=== PATIENT | male | born 1940 | race Caucasian/White ===

== ENCOUNTER 2017-06-15 05:35 | Day surgery (SDC) | payer MEDICARE, OTHER ==
[~2017-06-15] VITALS: Ht 172.7 cm; Wt 104.3 kg
[~2017-06-15 05:35] MED LIST: ASPIRIN325 MG PO; FINASTERIDE5 MG PO; FLOMAX0.4 MG PO; LIPITOR40 MG PO; PLAVIX75 MG PO
--- NOTE | 2017-06-15 08:43 | NUR ---
06/15/17 0843 Kaitlynn Beach DC
[2017-06-15] MEDS ORDERED: OXYCODON-ACETA1 EAC2 PO (09:00)
[2017-06-15] MEDS ORDERED: MAPAP325 MG PO (09:00)
[2017-06-15] MEDS ORDERED: IBUPROFEN600 MG PO (09:00)
--- NOTE | 2017-06-15 14:58 | OR ---
[facility] [address], [place] [address] Signed DATE OF OPERATION: 06/15/2017 SURGEON: Karyn Clayton MD PREOPERATIVE DIAGNOSES: 1. Recurrent soft tissue mass, mid posterior thorax, probable recurrent epidermal inclusion cyst. 2. New right posterior-superior thorax soft tissue mass. POSTOPERATIVE DIAGNOSES: 1. Recurrent epidermal inclusion cyst, mid posterior thorax (4 cm). 2. New epidermal inclusion cyst, right upper posterior thorax. PROCEDURES: 1. Excision of posterior thorax recurrent mid soft tissue mass (subfascial). 2. Excision of right posterior-superior thoracic soft tissue mass, probable epidermal inclusion cyst. ANESTHESIA: Local with monitored anesthesia care, Doris Paz CRNA and local 20 mL of 0.25% Marcaine with epinephrine. INDICATION: This 76-year-old white man is a patient of Dr. Norman Smiley and has had complex neck surgery in the past including titanium implant and so on. He has noted a soft tissue mass recurrence in the mid posterior thorax. Approximately 3 years ago, he underwent excision of what sounds like a sebaceous cyst by Dr. Manuelito Degroot. A transverse incision was made. He has had no drainage or infection of the area. It was somewhat uncomfortable. In addition, he has a new soft tissue mass of the right posterior thorax in the region of the scapula. He wishes that to be excised as well. The risks of bleeding, infection, cosmetic deformity, and of course, recurrence were reviewed with him and his . He understands and wished to proceed. FINDINGS: Rather sizable soft tissue mass was noted at the recurrent site of the previous excision. A transverse incision had previously been used. On this occasion, a longitudinal incision was more appropriate to allow for complete excision of the mass. It was most consistent with the recurrent epidermal inclusion cyst and was excised clearly to the posterior thoracic fascia and completely so. Good cosmesis was noted upon closure. Electronically Signed By: KARYN CLAYTON MD 06/15/17 1458 PATIENT NAME: PRACHI JAQUEZ OPERATIVE REPORT DATE OF : 38 PHYSICIAN: KARYN CLAYTON MD REPORT #: [id number] REPORT IS CONFIDENTIAL AND NOT TO BE RELEASED WITHOUT AUTHORIZATION [facility] [address], [place] [address] Signed The right posterior shoulder soft tissue mass was very likely epidermal inclusion cyst. Full thickness excision was undertaken including skin and subcutaneous tissue down to the posterior fascia as well. DESCRIPTION OF PROCEDURE: The patient was brought to the operating room and placed in the lateral decubitus position, which was of great discomfort to him. The left side was down. Appropriate padding was undertaken. Preoperative antibiotic Ancef was given. Sequential compression device stockings used and heparin subcutaneously administered. The posterior thorax including the right shoulder area was prepared with a chlorhexidine solution and draped sterilely. Intravenous sedation was induced with good cardiopulmonary monitoring. A local field block anesthetic was used with 1% lidocaine with epinephrine in both areas. The previous transverse incision over the mid thoracic lesion was markedly tethered to the deep soft tissue and a longitudinal incision was deemed most appropriate. An elliptical incision was made over that mass. Dissection carried through the thin epidermis, ultimately dissecting with #15 blade sharply and widely in the soft tissue mass, which was fibrotic and well encapsulated. Dissection was taken down to the posterior thoracic fascia, identifying well the muscular layer. Complete excision was undertaken without rupture of the lesion. Similar dissection was undertaken of the right posterior shoulder lesion, though it was not as cumbersome as the lesion was smaller and new. Both wounds were copiously irrigated with saline solution and 0.25% Marcaine with epinephrine was injected locally. Both were closed in layers with interrupted 2-0 Vicryl and a running subcuticular 3-0 Vicryl for the skin. Steri-Strips were applied as were Mepilex silver sponge dressing and OpSite. The patient was ultimately allowed to emerge from sedation, taken to recovery room in good condition having suffered no complications. Sponge, needle, and instruments counts reported as correct x2. Karyn Clayton MD /JOSEL /[id number] Electronically Signed By: KARYN CLAYTON MD 06/15/17 1458 PATIENT NAME: PRACHI JAQUEZ OPERATIVE REPORT DATE OF : 38 PHYSICIAN: KARYN CLAYTON MD REPORT #: [id number] REPORT IS CONFIDENTIAL AND NOT TO BE RELEASED WITHOUT AUTHORIZATION [address] [address] Signed cc: MD Manuelito Mendoza MD Electronically Signed By: KARYN CLAYTON MD 06/15/17 1458 PATIENT NAME: PRACHI JAQUEZ OPERATIVE REPORT DATE OF : 38 PHYSICIAN: KARYN CLAYTON MD REPORT #: [id number] REPORT IS CONFIDENTIAL AND NOT TO BE RELEASED WITHOUT AUTHORIZATION
[2017-07-25] MEDS ORDERED: PLAVIX75 MG PO (08:06)
== END 2017-06-15 09:36 | disposition home or self-care (01) ==
LOC: DS 05:35
PROVIDERS: Surgery
PROC: 0JBD0ZZ Excision of Right Upper Arm Subcutaneous Tissue and Fascia, Open Approach (ICD-10-PCS; 2017-06-15)
PROC: 0JB60ZZ Excision of Chest Subcutaneous Tissue and Fascia, Open Approach (ICD-10-PCS; principal; 2017-06-15 06:45)
DX: L72.0 Epidermal cyst (principal); K21.9 Gastro-esophageal reflux disease without esophagitis; E78.00 Pure hypercholesterolemia, unspecified; Z86.73 Personal history of transient ischemic attack (TIA), and cerebral infarction without residual deficits; Z90.49 Acquired absence of other specified parts of digestive tract; Z98.890 Other specified postprocedural states; Z79.899 Other long term (current) drug therapy
CPT/HCPCS: 00400; 88304; J0690; J1100; J1170; J2250; J2405; J2704; J3010; J7120

== ENCOUNTER 2017-08-01 05:40 | Day surgery (SDC) | payer MEDICARE, OTHER ==
[~2017-08-01] VITALS: Ht 172.7 cm; Wt 104.3 kg
[~2017-08-01 05:40] MED LIST changes: +IBUPROFEN600 MG PO; +MAPAP325 MG PO; +OXYCODON-ACETA1 EAC2 PO
--- NOTE | 2017-08-01 08:22 | NUR ---
08/01/17 0822 Danielle Hawk 0816 PATIENT AWAKE BUT DROWSY, DENIES PAIN. STATES I FEEL TINGLING. RESP EVEN AND UNLABORED, ROOM AIR.
[2017-08-01] MEDS ORDERED: OXYCODON-ACETA1 EAC2 PO (08:32)
[2017-08-01] MEDS ORDERED: IBUPROFEN600 MG PO (08:32)
--- NOTE | 2017-08-17 14:11 | OR ---
[facility] [address], [place] [address] Signed DATE OF OPERATION: 08/01/2017 SURGEON: Karyn Clayton MD PREOPERATIVE DIAGNOSIS: Right carpal tunnel syndrome. POSTOPERATIVE DIAGNOSIS: Right carpal tunnel syndrome. PROCEDURE: Right carpal tunnel release. ANESTHESIA: [employer] block with sedation (Saranya Whelan CRNA) and local 8 mL of 0.25% Marcaine without epinephrine. INDICATION: This is a 77-year-old white man is a patient of Dr. Norman Smiley. He has had relatively longstanding carpal tunnel type symptoms. His symptoms are greater on the right side than on the left side and include left thumb numbness and tingling of his hands, worse at night. He has some sensory problems in the radial distribution in the dorsum of the hand. No doubt unrelated to median neuropathy. He has undergone nerve conduction studies previously confirming bilateral carpal tunnel syndrome. He is admitted at this time to undergo right carpal tunnel release. Understand the risks of bleeding, infection, failure to cure the problem, recurrent problem, and other unforeseen complications. Understanding this, he wished to proceed. FINDINGS: Typical anatomy was noted of the right transverse carpal ligament. It was divided proximally and distally in the usual way revealing the underlying nerve, which had chronic inflammatory change. No sign of nerve tumor or other particular problem. DESCRIPTION OF PROCEDURE: The patient was brought to the operating room and given a [employer] block anesthetic in the right hand. Preoperative antibiotic Ancef was given. Sequential compression device stockings were used. The right hand and forearm were prepared with a chlorhexidine solution and draped sterilely. A rolled blue towel was placed behind the wrist and the malleable finger retractor used to expose the volar aspect of the right hand well. A small incision was made ulnar to the thenar crease. Dissection carried through the skin Electronically Signed By: KARYN CLAYTON MD 08/17/17 1411 PATIENT NAME: PRACHI JAQUEZ OPERATIVE REPORT DATE OF : 38 REPORT #: [id number] PHYSICIAN: KARYN CLAYTON MD PCP: Enid SMILEY MD REPORT IS CONFIDENTIAL AND NOT TO BE RELEASED WITHOUT AUTHORIZATION [facility] [address], [place] [address] Signed and subcutaneous tissue, transecting the palmaris longus longitudinally revealing the underlying transverse carpal ligament. It was incised with all due care using loupe magnification headlight illumination and once slightly transected, a hemostat was placed beneath it, protecting the underlying median nerve. Further transection of the transverse carpal ligament was taken distally onto the palmar fat. Hemostat was replaced proximally and the more proximal transverse carpal ligament divided under direct visualization ultimately to the transverse wrist crease using tenotomy scissors. Good hemostasis was noted. The exsanguination with a [employer] block was quite good. The underlying nerve appeared relatively chronically inflamed. Irrigation was undertaken and needlepoint electrocautery was used in the subdermal veins that for postoperative hemostatic effect. An 8 mL of 0.25% Marcaine without epinephrine was injected locally for postoperative analgesic benefit. The skin was closed with interrupted 2-0 nylon suture. Xeroform dressing was applied as was some gauze and a Flexicon applied. The cock-up wrist splint was applied as was an Mauricio wrap and pressure applied to the operative site. The tourniquet was taken down at 23 minutes and pressure applied to the operative site until rubor returned and receded from hand. He was transported from the operating room to recovery area in good condition. Blood loss was zero. MD POLO Morin/JOSEL /[id number] cc: Enid Smiley MD Electronically Signed By: KARYN CLAYTON MD 08/17/17 1411 PATIENT NAME: PRACHI JAQUEZ OPERATIVE REPORT DATE OF : 38 REPORT #: [id number] PHYSICIAN: KARYN CLAYTON MD PCP: Enid SMILEY MD REPORT IS CONFIDENTIAL AND NOT TO BE RELEASED WITHOUT AUTHORIZATION
== END 2017-08-01 09:15 | disposition home or self-care (01) ==
LOC: OPS 05:40 → DS 05:40 → OPS 06:45
PROVIDERS: Surgery
PROC: 01N50ZZ Release Median Nerve, Open Approach (ICD-10-PCS; principal; 2017-08-01 06:45)
DX: G56.03 Carpal tunnel syndrome, bilateral upper limbs (principal); K21.9 Gastro-esophageal reflux disease without esophagitis; E78.00 Pure hypercholesterolemia, unspecified; Z98.890 Other specified postprocedural states; Z90.49 Acquired absence of other specified parts of digestive tract; Z86.73 Personal history of transient ischemic attack (TIA), and cerebral infarction without residual deficits; Z79.02 Long term (current) use of antithrombotics/antiplatelets; Z79.82 Long term (current) use of aspirin; Z79.899 Other long term (current) drug therapy
CPT/HCPCS: 01810; J0690; J2250; J2704; J7120

== ENCOUNTER 2017-09-04 11:59 | Day surgery (SDC) | payer MEDICARE, OTHER ==
[~2017-09-04] VITALS: Ht 172.7 cm; Wt 100.7 kg
--- NOTE | 2017-09-04 13:44 | NUR ---
09/04/17 1344 Ashwini Bradford 1341 TO PACU, AWAKE AND ALERT. RESP EVEN UNLABORED. DENIES PAIN OR NAUSEA.
--- NOTE | 2017-09-04 19:37 | OR ---
[facility] [address], [place] [address] Signed DATE OF OPERATION: 09/04/2017 SURGEON: Karyn Clayton MD PREOPERATIVE DIAGNOSIS: History of rectosigmoid diminutive polyp, 2009. POSTOPERATIVE DIAGNOSES: 1. Sessile polyp at 40 cm (excised). 2. Scattered diverticula of sigmoid. PROCEDURE: Total colonoscopy to cecum with cold morcellation polypectomy x1. ANESTHESIA: Intravenous sedation, fentanyl 100 mcg, Versed 4 mg. INDICATION: This 77-year-old white man is a patient of Dr. Smiley and has recently undergone carpal tunnel release by me on August 01, 2017. He has recovered from that fully. Notably, he had colonoscopy in 2009 and diminutive polyp was found at the rectosigmoid. He had a polyp in 2001 at the splenic flexure. He is symptom-free currently and has no family history of colon cancer, but he is here for surveillance colonoscopy based on his previous findings. The risks of colonoscopy including, but not limited to, bleeding, infection, and perforation were reviewed in detail. He understands and wished to proceed. FINDINGS: There was a polyp about 8 mm in size, noted at 40 cm. This was excised with cold morcellation technique. There were few scattered diverticula of the sigmoid. The remaining colon was normal. DESCRIPTION OF PROCEDURE: The patient was brought to the endoscopy suite and placed in lateral decubitus position, given intravenous sedation to the point of slurred speech and nystagmus. Digital rectal examination was normal. An Olympus video colonoscope was passed in the rectum and manipulated throughout the colon, noting a polyp at about 40 cm. This was excised with cold morcellation technique. Once complete, the scope was passed beyond this area ultimately to the Electronically Signed By: KARYN CLAYTON MD 09/04/17 1937 PATIENT NAME: PRACHI JAQUEZ OPERATIVE REPORT DATE OF : 38 REPORT #: [id number] PHYSICIAN: KARYN CLAYTON MD PCP: Enid SMILEY MD REPORT IS CONFIDENTIAL AND NOT TO BE RELEASED WITHOUT AUTHORIZATION [facility] [address], [place] [address] Signed cecum. The ileocecal valve and appendiceal orifice were normal. Irrigation was undertaken as needed and the scope was then withdrawn. Examination upon withdrawal of the scope showed no sign of abnormality other than diverticular change of the sigmoid and left colon in small amounts as well as the previous excision site. Withdrawal of scope to the rectum allowed for retroflexed view, which was normal. Scope was removed and the patient was taken to recovery room in good condition. CONCLUDING DIAGNOSES: 1. Minimal diverticular change. 2. Polyp at 40 cm, excised. PLAN: Recommend repeat colonoscopy in 3 to 5 years, sooner if clinically indicated. He will return to the ongoing care of Dr. Smiley in the meantime. MD POLO Morin/FOX /[id number] cc: Enid Smiley MD Copies: Enid SMILEY MD ~ Electronically Signed By: KARYN CLAYTON MD 09/04/17 1937 PATIENT NAME: RICHIQRAHERACLIOPRACHIJIMBO JARAMILLOANTONIO OPERATIVE REPORT DATE OF : 38 REPORT #: [id number] PHYSICIAN: KARYN CLAYTON MD PCP: Enid SMILEY MD REPORT IS CONFIDENTIAL AND NOT TO BE RELEASED WITHOUT AUTHORIZATION
== END 2017-09-04 14:08 | disposition home or self-care (01) ==
LOC: OPS 11:59 → DS 11:59 → OPS 13:00
PROVIDERS: Surgery
PROC: 0DBE8ZX Excision of Large Intestine, Via Natural or Artificial Opening Endoscopic, Diagnostic (ICD-10-PCS; principal; 2017-09-04 13:00)
DX: Z12.11 Encounter for screening for malignant neoplasm of colon (principal); K63.5 Polyp of colon; K57.30 Diverticulosis of large intestine without perforation or abscess without bleeding; K21.9 Gastro-esophageal reflux disease without esophagitis; E78.00 Pure hypercholesterolemia, unspecified; Z86.010 Personal history of colon polyps; Z90.49 Acquired absence of other specified parts of digestive tract; Z98.890 Other specified postprocedural states; Z85.828 Personal history of other malignant neoplasm of skin
CPT/HCPCS: 88305; 99153; G0500; J2250; J3010; J7120

== ENCOUNTER 2024-05-12 19:53 | Emergency (ER) | payer MEDICARE, OTHER ==
[~2024-05-12] VITALS: Ht 172.7 cm; Wt 91.1 kg
[~2024-05-12 19:53] MED LIST changes: +AZITHROMYCIN500 MG PO; +BENZONATATE100 MG PO; +HYDROCODON-ACE1 EA10 PO; +VENTOLIN HFA18 GM INH
[2024-05-12] MEDS ORDERED: ATORVASTATIN CA40 MG PO (20:03)
[2024-05-12] MEDS ORDERED: GLYCERIN 2 GM SUPP PR ONE (20:15)
[2024-05-12] MEDS ORDERED: MIRALAX119 GM PO (22:14)
[2024-05-12 22:25] LABS: BILIRUBIN, URINE NEGATIVE (negative); BLOOD/HGB, URINE NEGATIVE (Negative); KETONE, URINE NEGATIVE (Negative); LEUK ESTERASE, URINE NEGATIVE (negative); NITRITE, URINE NEGATIVE (negative); PH, URINE 5.5 (5-7)
[2024-05-12 22:30] VITALS: BP 108/64
== END 2024-05-12 22:30 | disposition home or self-care (01) ==
LOC: ED 19:53
PROVIDERS: Internal Medicine
DX: K59.00 Constipation, unspecified (principal); N40.0 Benign prostatic hyperplasia without lower urinary tract symptoms; Z86.73 Personal history of transient ischemic attack (TIA), and cerebral infarction without residual deficits; Z87.891 Personal history of nicotine dependence; Z79.02 Long term (current) use of antithrombotics/antiplatelets; Z79.82 Long term (current) use of aspirin; Z79.899 Other long term (current) drug therapy
CPT/HCPCS: 81003; 99284